=== PATIENT | female | born 1990 | race Caucasian/White ===

== ENCOUNTER 2021-01-22 21:15 | Emergency (ER) | payer OTHER ==
[2021-01-22 21:45] VITALS: TEMP 98.1
[2021-01-22] MEDS ORDERED: CYCLOBENZAPRINE 10 MG TAB PO STA (22:01)
[2021-01-22] MEDS ORDERED: KETOROLAC 15 MG/ML 1 ML VIAL IM STA (22:01)
[2021-01-22] MEDS ORDERED: DIAZEPAM 5 MG/ML 2 ML INJ IM STA (22:02)
[2021-01-22] MEDS ORDERED: LIDOCAINE 5% PATCH TOPICAL STA (22:02)
--- NOTE | 2021-01-22 22:05 | ED ---
Back Pain HPI - General Chief Complaint: Back Pain/Injury Stated Complaint: back spasms Time Seen by Provider: 01/22/21 21:56 Source: patient, family Limitations: no limitations - History of Present Illness Initial Comments: 30-year-old female with history of chronic back pain presents to the emergency department with the chief complaint of back pain and spasms. Patient states she she was playing softball when she was pitching and felt sudden onset spasmic pain in the lumbar region. States the pain is going on with continuous spasms without any radiation. Denies any saddle anesthesia, urinary retention with overflow or bowel incontinence. Denies taking medication to alleviate the symptoms. States the pain is exacerbated with any movement. Alleviated when laying flat. - Related Data Previous Rx's Medication Instructions Recorded Hydrocortisone Cream 1 applic TOPICAL BID 10 Days 02/24/16 [Hydrocortisone 2.5% Cream] cream..g. Cyclobenzaprine [Flexeril] 5 mg PO TID PRN #15 tablet 01/22/21 Allergies Allergy/AdvReac Type Severity Reaction Status Date / Time amoxicillin [Amoxicillin] Allergy Unknown Verified 01/22/21 21:45 Review of Systems ROS Statement: Those systems with pertinent positive or pertinent negative responses have been documented in the HPI. ROS Other: All systems not noted in ROS Statement are negative. Past Medical History Past Medical History: No Reported History Additional Past Medical History / Comment(s): back pain History of Any Multi-Drug Resistant Organisms: None Reported Past Surgical History: No Surgical Hx Reported Past Psychological History: No Psychological Hx Reported Smoking Status: Never smoker Past Alcohol Use History: Occasional Past Drug Use History: None Reported General Exam Limitations: no limitations General appearance: alert, in no apparent distress Head exam: Present: atraumatic, normocephalic, normal inspection Eye exam: Present: normal appearance, PERRL, EOMI Pupils: Present: normal accommodation ENT exam: Present: normal exam, normal oropharynx, mucous membranes moist Neck exam: Present: normal inspection, full ROM. Absent: tenderness Respiratory exam: Present: normal lung sounds bilaterally. Absent: respiratory distress, wheezes, rales Cardiovascular Exam: Present: regular rate, normal rhythm, normal heart sounds. Absent: systolic murmur GI/Abdominal exam: Present: soft. Absent: distended, tenderness, guarding Extremities exam: Present: normal inspection, full ROM, normal capillary refill. Absent: tenderness, pedal edema, joint swelling Back exam: Present: normal inspection, full ROM, tenderness, muscle spasm (Lumbar region) Neurological exam: Present: alert, oriented X3 Psychiatric exam: Present: normal affect, normal mood Skin exam: Present: warm, dry, intact, normal color Course Vital Signs 01/22/21 01/22/21 01/22/21 21:43 22:25 23:25 Temperature 98.1 F Pulse Rate 114 H 79 77 Respiratory 20 22 20 Rate Blood Pressure 137/69 127/98 128/69 O2 Sat by Pulse 97 97 98 Oximetry Medical Decision Making - Medical Decision Making 30-year-old female with history of chronic back pain presents to the emergency department with the chief complaint of back pain and spasms. On physical examination, patient appears to have intermittent spasms of her lower back region. Some paraspinal tenderness as well. No sciatica-type symptoms. No concern for cauda equina. She's had symptoms like this before. I gave her Valium to abort the spasms along with a Lidoderm patch and Toradol. On reevaluation, patient reports improvement in her symptoms. I will discharge with Flexeril and tramadol starter pack. We'll also do push torsion for Flexeril. Advised not to take the medications together. Strict return parameters were thoroughly discussed with patient is understanding and agreeable. Positive follow-up with an mortgage specialist. Case discussed with physician. Disposition Clinical Impression: Spasm of muscle of lower back Disposition: HOME SELF-CARE Condition: Stable Instructions (If sedation given, give patient instructions): Acute Low Back Pain (ED), Muscle Spasm (ED), Lower Back Exercises (ED) Additional Instructions: Please return to the Emergency Department if symptoms worsen or any other concerns. Follow-up with mortgage specialist. Take prescribed medication as directed. Prescriptions: Cyclobenzaprine [Flexeril] 5 mg PO TID PRN #15 tablet PRN Reason: Muscle Spasm Is patient prescribed a controlled substance at d/c from ED?: No Referrals: Nonstaff,Physician [Primary Care Provider] - 1-2 days Ernie Barrow DO [Doctor of Osteopathic Medicine] - 1-2 days Time of Disposition: 22:47
[2021-01-22] MEDS ORDERED: traMADol 50 MG STARTER PACK 3 TAB BTL PO STA (22:46)
[2021-01-22] MEDS ORDERED: CYCLOBENZAPRINE 10MG STARTER 3 TAB BTL PO STA (22:46)
[2021-01-22 23:26] VITALS: BP 128/69; PULSE 77; RESP 20
== END 2021-01-22 23:26 | disposition home or self-care (01) ==
LOC: EC 21:15
DX: M62.830 Muscle spasm of back (principal)
CPT/HCPCS: 99283; 96372 ×2; J3360; J1885

== ENCOUNTER 2021-11-02 09:25 | Emergency (ER) | payer BC, OTHER ==
[2021-11-02 09:34] VITALS: RESP 18; TEMP 96.6
[2021-11-02] MEDS ORDERED: ONDANSETRON 4 MG/2 ML VIAL IVP STA (11:39)
[2021-11-02] MEDS ORDERED: HYDROmorphone 0.5 MG/0.5 ML SYRINGE IVP STA (11:39)
[2021-11-02] MEDS ORDERED: DIAZEPAM 5 MG/ML 2 ML INJ IVP STA (11:39)
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
--- NOTE | 2021-11-02 13:20 | CT ---
EXAMINATION TYPE: CT lumbar spine wo con DATE OF EXAM: 11/02/2021 1:00 PM COMPARISON: None. HISTORY: LOW BACK PAIN CT DLP: 1223.6 mGycm Automated exposure control for dose reduction was used. Unenhanced CT of the lumbar spine was performed. Bone and soft tissue window settings are submitted as well as coronal and sagittal reconstructions. Evaluation is suboptimal due to large body habitus. There are 5 lumbar type vertebra. Alignment is straightened. Vertebral body heights and disc space he ights are preserved. No acute fracture or dislocation. Axial images shows T12-L1 through the L2-L3 level to appear within normal limits. Axial images at the L3-L4 level show moderate central disc protrusion effacing the anterior thecal sa c on axial image 44. Patent bilateral neural foramina. Axial images at the L4-L5 level show focal left paracentral disc protrusion effacing the anterolatera l thecal sac on axial image 56. Mild facet arthropathy bilaterally. Patent bilateral neural foramina. Axial images at L5-S1 level show right paracentral spur disc complex effacing the anterolateral theca l sac on axial image 64, the bilateral neural foramina are patent. Paraspinal muscle bulk is preserved. Partial visualization of normal appendix coronal image 2 for ref erence. Partial visualization of anteverted uterine fundus lowermost axial images. IMPRESSION: Mild to moderate degenerative changes in the mid to lower lumbar spine as detailed above. No acute findings are evident. Patient may benefit with nonemergent MRI evaluation if there is conc marcelina for lower extremity radiculopathy.
[2021-11-02] MEDS ORDERED: methylPREDNISolone SOD SUCCI 125 MG/2 ML VIAL IV STA (13:32)
[2021-11-02] MEDS ORDERED: KETOROLAC 15 MG/ML 1 ML VIAL IVP STA (13:32)
[2021-11-02] MEDS ORDERED: ORPHENADRINE 30 MG/ML 2 ML VIAL IVP STA (13:32)
[2021-11-02 14:17] VITALS: BP 138/80; PULSE 98
== END 2021-11-02 14:18 | disposition home or self-care (01) ==
LOC: EC 09:25
DX: M51.26 Other intervertebral disc displacement, lumbar region (principal); M62.830 Muscle spasm of back; Z88.0 Allergy status to penicillin
CPT/HCPCS: 99283; 96374; 96375 ×5; 72131; J2360; J2930; J3360; J2405; J1885; J1170